=== PATIENT | female | born 1990 | race American Indian/Alaskan Native ===

== ENCOUNTER 2018-06-24 20:25 | Emergency (ER) | payer MEDICAID ==
[2018-06-24 20:31] VITALS: BMI 39.1
--- NOTE | 2018-06-24 21:36 | ED PDOC ---
Arrival/HPI - General Chief Complaint: Female Genitourinary Time Seen by Provider: 06/24/18 20:28 Historian: Patient - History of Present Illness Narrative History of Present Illness (Text): 06/24/18 21:24 28 year old female, whose past medical history includes trichomoniasis, presents to the emergency department complaining of vaginal discharge for the past 2 days. Patient reports she had was diagnosed with trichomoniasis 1 month ago and treated which symptoms resolved. Patient admits to recently having unprotected sex with her one partner. Patient denies any fever, chills, chest pain, shortness of breath, abdominal pain, nausea, vomiting, diarrhea, itchiness, vaginal odor, back pain, neck pain, headache, dizziness, or any other complaints. PMD: Dr. Kelly Time/Duration: Other (2 days) Symptom Onset: Gradual Symptom Course: Unchanged Activities at Onset: Light Context: Home Past Medical History - Provider Review Nursing Documentation Reviewed: Yes - Reproductive Menopause: No Currently : No - Genitourinary/Gynecological Hx Sexually Transmitted Diseases: Yes (Trichomoniasis) - Psychiatric Hx Substance Use: No Family/Social History - Physician Review Nursing Documentation Reviewed: Yes Family/Social History: No Known Family HX Smoking Status: Never Smoked Hx Alcohol Use: No Hx Substance Use: No Allergies/Home Meds Allergies/Adverse Reactions: Allergies No Known Allergies Allergy (Verified 06/24/18 20:37) Review of Systems - Physician Review All systems were reviewed & negative as marked: Yes - Review of Systems Constitutional: absent: Fevers, Other (Chills) Respiratory: absent: SOB Cardiovascular: absent: Chest Pain Gastrointestinal: absent: Diarrhea, Nausea, Vomiting Genitourinary Female: Vaginal Discharge. absent: Dysuria, Frequency, Hematuria, Other (ordor) Musculoskeletal: absent: Back Pain, Neck Pain Neurological: absent: Headache, Dizziness Physical Exam Vital Signs Reviewed: Yes Blood Pressure: Normal Pulse: Regular Respiratory Rate: Normal Appearance: Positive for: Well-Appearing, Non-Toxic, Comfortable Pain Distress: None Mental Status: Positive for: Alert and Oriented X 3 - Systems Exam Cardiovascular: Present: Regular Rate and Rhythm, Normal S1, S2. No: Murmurs, Rub, Gallop Abdomen: Present: Other (soft). No: Tenderness, Distention Genitourinary/Pelvic Exam: Present: Vaginal Discharge (white thin discharge noted in the vaginal vault.). No: Vaginal Bleeding (no blood), Adenexal Tenderness, Cervical Motion Tendernes, Odor, Other (no cervical friability) Neurological: Present: GCS=15, Speech Normal Skin: Present: Warm, Dry, Normal Color. No: Rashes Psychiatric: Present: Alert, Oriented x 3, Normal Insight, Normal Concentration Medical Decision Making ED Course and Treatment: 06/24/18 21:24 Impression: 28 year old female presents complaining of vaginal discharge for the past 2 days. Patient with a past medical history includes trichomoniasis. Differential Diagnosis included but are not limited to: -- bacterial Vaginosis -- Trichomoniasis -- Ariadna Vulvovagnitis -- Chlamydia/ Gonorrhea Plan: -- Chlamydia/GC RNA,TMA -- Flagyl -- T. Vaginalis Culture -- POC Urine Test -- Urinalysis -- Reassess and disposition Progress Notes: 06/24/18 22:06 Urinalysis shows no esterases or nitrites. Patient educated on probability of STIs and advised to avoid ingesting alcohol while taking antibiotics. She demonstrates understanding. Scripts provided and opportunity for questions given and answered. She is stable for discharge. - Lab Interpretations Lab Results: Lab Results 06/24/18 21:34: Urine Color Yellow, Urine Appearance Clear, Urine pH 6.0, Ur Specific [place] 1.015, Urine Protein Negative, Urine Glucose (UA) >=1000, Urine Ketones Negative, Urine Blood Negative, Urine Nitrate Negative, Urine Bilirubin Negative, Urine Urobilinogen 0.2, Ur Leukocyte Esterase Negative I have reviewed the lab results: Yes - Medication Orders Current Medication Orders: 06/24/18 22:22 Discontinued Medications Metronidazole (Flagyl) 500 mg PO STAT STA; Protocol Stop: 06/24/18 21:31 Last Admin: 06/24/18 21:47 Dose: 500 mg - Scribe Statement The provider has reviewed the documentation as recorded by the Patricia Burton Provider Carenibe Attestation: All medical record entries made by the Scribe were at my direction and personally dictated by me. I have reviewed the chart and agree that the record accurately reflects my personal performance of the history, physical exam, medical decision making, and the department course for this patient. I have also personally directed, reviewed, and agree with the discharge instructions and disposition. Disposition/Present on Arrival - Present on Arrival Any Indicators Present on Arrival: No History of DVT/PE: No History of Uncontrolled Diabetes: No Urinary Catheter: No History of Decub. Ulcer: No History Surgical Site Infection Following: None - Disposition Have Diagnosis and Disposition been Completed?: Yes Diagnosis: Bacterial vaginal infection Disposition: HOME/ ROUTINE Disposition Time: 21:54 Patient Plan: Discharge Condition: STABLE Discharge Instructions (ExitCare): Bacterial Vaginosis (DC) Print Language: FIJIAN Additional Instructions: All medical record entries made by the Scribe were at my direction and personally dictated by me. I have reviewed the chart and agree that the record accurately reflects my personal performance of the history, physical exam, medical decision making, and the department course for this patient. I have also personally directed, reviewed, and agree with the discharge instructions and disposition. Please be aware that results take 24-48 hrs to process Please AVOID alcohol when taking Flagyl for 1 week Prescriptions: Metronidazole [Flagyl] 500 mg PO BID 7 Days #14 tablet Referrals: Ruth Kelly MD [Primary Care Provider] - Follow up with primary Simon Mandel MD [Medical Doctor] - Follow up with primary Forms: [employer] (T[place]ik)
[2018-06-24 21:40] LABS: URINE APPEARANCE CLEAR (CLEAR); URINE BILIRUBIN NEGATIVE (NEGATIVE); URINE BLOOD NEGATIVE (NEGATIVE); URINE COLOR YELLOW (YELLOW); URINE GLUCOSE (UA) >=1000 mg/dL (NEGATIVE); URINE LEUKOCYTE ESTERASE NEGATIVE Leu/uL (NEGATIVE); URINE PROTEIN NEGATIVE mg/dL (<30 mg/dL); URINE UROBILINOGEN 0.2 E.U./dL (<1 E.U./dL)
[2018-06-24 22:08] VITALS: BP 134/78; PULSE 92; RESP 18; O2SAT 99
== END 2018-06-24 22:08 | disposition home or self-care (01) ==
LOC: ED 20:25
DX: N76.0 Acute vaginitis (principal)